=== PATIENT | male | born 1935 | race Caucasian/White ===

== ENCOUNTER 2020-12-16 08:52 | Observation (INO) | payer MEDICARE, OTHER ==
[2020-12-16 09:37] LABS: #Eosinphils 0.1 thou/uL (0.0-0.7); #Lymphocytes 2.1 thou/uL (1.20-3.40); #Monocytes 0.4 thou/uL (0.11-0.59); #Neutrophils 11.9 thou/uL (1.40-6.50); %Basophils 0.1 % (0.0-1.0); %Lymphocytes 14.5 % (21.0-51.0); %Monocytes 2.4 % (0.0-10.0); Hemoglobin 12.7 g/dL (14.0-18.0); Mean Corpuscular HGB CONC 32.6 g/dL (32.0-36.0); Mean Corpuscular Hemoglobin 33.3 pg (27.0-31.0); Mean Platelet Volume 9.6 fL (7.4-10.4); Platelet Count 167 thou/uL (130-400); RBC Distribution Width 16.1 % (11.5-14.5); White Blood Cell (WBC) Count 14.5 thou/uL (4.8-10.8)
--- NOTE | 2020-12-16 09:44 | RAD ---
Exam: Chest one view HISTORY:Status post fall. Pain. Comparison: None FINDINGS: Cardiac silhouette:Cardiomegaly. Left-sided transvenous defibrillator with lead positioned over the c oronary sinus, right ventricle. There are sternotomy wires. Aorta: Atherosclerotic Pulmonary vessels: Normal Costophrenic angles: Clear LUNGS: Presumed chronic changes of the lung parenchyma without consolidation or mass. Pneumothorax: None Osseous abnormalities: None IMPRESSION: 1. Atherosclerosis 2. Cardiomegaly without evidence of congestive heart failure.
[2020-12-16 09:52] LABS: ALT (SGPT) 11 U/L (8-55); AST (SGOT) 22 U/L (5-34); Albumin 3.9 g/dL (3.4-4.8); Alkaline Phosphatase 62 U/L (40-110); Anion Gap 16 mmol/L (10-20); BUN (Urea Nitrogen) 25 mg/dL (8.4-25.7); Bilirubin, Total 1.2 mg/dL (0.2-1.2); Calc. Creatinine Clearance 0 mL/min (70-130); Calcium 8.9 mg/dL (7.8-10.44); Carbon Dioxide 22 mmol/L (23-31); Chloride 105 mmol/L (98-107); Globulin 3.5 g/dL (2.4-3.5); Glucose 198 mg/dL (83-110); Potassium 4.5 mmol/L (3.5-5.1); Protein, Total 7.4 g/dL (5.8-8.1); Sodium 138 mmol/L (136-145)
--- NOTE | 2020-12-16 10:01 | CT ---
Exam: Head CT without contrast HISTORY: Fall. Trauma. Pain. COMPARISON: none FINDINGS: Hemorrhage: No intraparenchymal hemorrhage or extra-axial hematoma. Brain parenchyma: Cortical khan-white matter differentiation is preserved. No mass effect or midline shift. Basilar cisterns are patent.There are chronic small vessel ischemic changes of the white matter Ventricular system: Ventricles and sulci are patent and symmetric. Calvarium: Intact. Sinuses and mastoid air cells: Adequate aeration. IMPRESSION: No intracranial posttraumatic sequelae.
[2020-12-16 10:09] LABS: INR-International Normal Ratio 2.6; Prothrombin Time 28.6 sec (12.0-14.7)
[2020-12-16 10:10] LABS: PTT 44.7 sec (22.9-36.1)
[2020-12-16 10:12] LABS: CKMB 0.9 ng/mL (0-6.6)
--- NOTE | 2020-12-16 11:12 | CT ---
CT LUMBAR SPINE WITHOUT IV CONTRAST: HISTORY: Injury and pain following a fall. FINDINGS: Diffuse bony demineralization. Minimally comminuted, less than 50% vertical height loss fracture of t he L2 vertebral body without significant retropulsion. No associated posterior element involvement. V hermes mild vertical height loss of T11, which may also represent a very mild superior endplate compress ion fracture. There is possibly very mild superior retropulsion. No evidence for associated stenosis. No posterior element involvement. Minimal grade 1 spondylolisthesis of L5 on S1 with bilateral pars defects. Mild canal stenosis at L3-L4 from disk bulging and ligament and facet hypertrophic changes. IMPRESSION: 1. Comminuted, less than 50% vertical height fracture of L2 without significant retropulsion or poste rior element involvement. 2. Mild anterior-superior compression fracture of T11 with possible very mild superior retropulsion. 3. Grade 1 anterolisthesis of L5 on S1 secondary to bilateral pars defects. 4. Significant diffuse bony demineralization. POS: RRE
[2020-12-16 15:20] LABS: CKMB 1.2 ng/mL (0-6.6)
--- NOTE | 2020-12-16 15:26 | PDOC.FPRHP ---
- History of Present Illness Chief Complaint: fell on ice History of Present Illness: Mr. Wolff is an 85 yo gentleman with a history of CABG 2/2 CAD, past OR, and ICD secondary to ventricular fibrillation who had a nonsyncopal fall this morning when he slipped on ice walking to get his newspaper and fell on his bottom. He reports pain in his lower back. He denies urinary incontinence, lower extremity weakness, numbness, or tingling. Patient was found to have troponin levels of 0.035, 0.042, 0.056 in the ED. He denies headache, diaphoresis, CP, or SOB. ED Course: Neurosurgery contacted and recommended, TINO arguello - Allergies/Adverse Reactions Allergies Allergy/AdvReac Type Severity Reaction Status Date / Time Penicillins Allergy Verified 12/16/20 16:20 - Home Medications Comments: furosemide, sotalol, coumadin, losartan, glipizide, metoprolol, zocor - History PMHx: bladder cancer, OR, CAD, DMII, HTN, HLD PSHx: CABG, colostomy, ICD FHx: Dad-passed from [place] Social: Denies tobacco, alcohol, or drug use - Review of Systems General: denies: fever/chills Eyes: denies: vision changes Respiratory: denies: cough, congestion, shortness of breath Cardiovascular: denies: chest pain, palpitation Gastrointestinal: denies: nausea, vomiting Genitourinary: denies: incontinence Skin: denies: rashes Musculoskeletal: reports: pain, tenderness Neurological: denies: numbness, weakness - Vital signs BP: 151/85 HR: 61 RR: 18 Tmax: 98.1 Pox: 92% on RA Wt: 100kg - Physical Exam Constitutional: NAD HEENT: grossly normal vision, grossly normal hearing Neck: FROM -Heart: paced rhythm Lungs: CTAB Abdomen: soft, non-tender -Abdomen: colostomy on right side of abdomen Musculoskeletal: ROM grossly normal -Musculoskeletal: tenderness to palpation over lumbar spine, normal sensation and strength of LE bilaterally Neurological: no focal deficit, normal sensation Skin: no rash/lesions Heme/Lymphatic: no unusual bruising or bleeding Psychiatric: normal mood and affect, good judgment and insight, intact recent and remote memory FMR H&P: Results - Labs Result Diagrams: 12/16/20 09:19 12/16/20 09:20 Lab results: WBC 14.5 thou/uL (4.8-10.8) H 12/16/20 09:19 Hgb 12.7 g/dL (14.0-18.0) L 12/16/20 09:19 Hct 38.9 % (42.0-52.0) L 12/16/20 09:19 MCV 102.0 fL (78.0-98.0) H 12/16/20 09:19 Plt Count 167 thou/uL (130-400) 12/16/20 09:19 Neutrophils % 82.0 % (42.0-75.0) H 12/16/20 09:19 Sodium 138 mmol/L (136-145) 12/16/20 09:20 Potassium 4.5 mmol/L (3.5-5.1) 12/16/20 09:20 Chloride 105 mmol/L (98-107) 12/16/20 09:20 Carbon Dioxide 22 mmol/L (23-31) L 12/16/20 09:20 BUN 25 mg/dL (8.4-25.7) 12/16/20 09:20 Creatinine 1.67 mg/dL (0.7-1.3) H 12/16/20 09:20 Glucose 198 mg/dL (83-110) H 12/16/20 09:20 Calcium 8.9 mg/dL (7.8-10.44) 12/16/20 09:20 Total Bilirubin 1.2 mg/dL (0.2-1.2) 12/16/20 09:20 AST 22 U/L (5-34) 12/16/20 09:20 ALT 11 U/L (8-55) 12/16/20 09:20 Alkaline Phosphatase 62 U/L (40-110) 12/16/20 09:20 Creatine Kinase 50 U/L (30-200) 12/16/20 09:16 CK-MB (CK-2) 1.2 ng/mL (0-6.6) 12/16/20 14:25 Serum Total Protein 7.4 g/dL (5.8-8.1) 12/16/20 09:20 Albumin 3.9 g/dL (3.4-4.8) 12/16/20 09:20 - EKG Interpretation EKG: paced rhythm - Radiology Interpretation CT scan - head Status: report reviewed by me (negative) Other Status: report reviewed by me (CT lumbar spine: vertical height fracture L2, compression fracture T11) FMR H&P: A/P - Plan 85 yo M presenting after nonsyncopal fall with indeterminate troponinsx3. Indeterminate troponins - trop 0.035, 0.042, 0.056 - Extensive cardiac history including OR, CABG 2/2 CAD, ICD 2/2 ventricular fibrillation - Admit to tele for observation - trend troponins Vertical height fracture L2, compression fracture T11 - CT lumbar spine revealed above - Neurosurgery consulted, recommended TLSO brace - Tylenol 1g q6hr, PRN 600mg ibuprofen MELVIN vs CKD - Cr 1.67, do not know baseline - LR 500mL bolus ordered - Recheck in AM HLD - Continue home meds HTN - Continue home meds DM2 - Continue home meds ICD 2/2 ventricular fibrillation - Continue coumadin DVT PPx: home coumadin Diet: PCP: CC Dispo: likely discharge home tomorrow pending troponins FMR H&P: Upper Level - Plan Date/Time: 12/16/20 1526 Boni Bonilla [email or web address], have evaluated this patient and agree with findings/plan as outlined by analytics intern resident. Pertinent changes/additions are listed here. 85-year-old gentleman presents to the ER after falling on his sidewalk. He has cardiac history of CAD and has an AICD placed. He reports that his fall was mechanical 1 as he slipped on the ice. In the emergency room he was evaluated by neurosurgery and had recommendations for outpatient follow-up after being given a TLSO brace. However his troponins have increased since being in the emergency room. On exam he is in no distress, heart has regular rate and rhythm with no murmur, lungs are clear to auscultation bilaterally, lower extremities have no edema. Assessment and plan Elevated troponin Patient is stable, EKG is not concerning, troponins are indeterminate and increasing x3. Etiology of elevation is unknown but patient is asymptomatic other than his back pain from the compression fracture. Will trend overnight and likely DC tomorrow Compression fracture Per neuro surgery recommendation will give patient TLSO brace and plan for follow-up outpatient. All other chronic problems per analytics intern note CODE: FULL dispo: obs, less than 2 midnights expected
[2020-12-16] MEDS ORDERED: Ondansetron ODT 4 MG TAB PO PRN (15:46)
[2020-12-16] MEDS ORDERED: Ibuprofen 600 MG TAB PO PRN (15:46)
[2020-12-16] MEDS ORDERED: Ondansetron PF 4 MG/2 ML Vial IVP PRN (15:46)
[2020-12-16] MEDS ORDERED: Lactated Ringer's 500 ML IV SCH (16:00)
[2020-12-16 17:32] VITALS: BMI 29.2
[2020-12-16] MEDS: Acetaminophen 500 MG TAB PO SCH ×2 (18:00→20:46)
[2020-12-16 19:37] LABS: Troponin I 0.042 ng/mL (< 0.028)
[2020-12-16] MEDS ORDERED: glipiZIDE 5 MG TAB PO SCH (21:00)
[2020-12-16] MEDS ORDERED: Warfarin Sodium 2 MG TAB PO SCH (21:00)
[2020-12-16] MEDS ORDERED: Atorvastatin Calcium 10 MG TAB PO SCH (21:00)
[2020-12-16 22:41] LABS: Troponin I 0.046 ng/mL (< 0.028)
[2020-12-17 01:19] LABS: SARS-CoV-2 PCR by NAA Not Detected (NotDetected)
[2020-12-17] MEDS ORDERED: Sotalol HCl 80 MG TAB ONE (08:07)
[2020-12-17] MEDS ORDERED: Furosemide 20 MG TAB ONE (08:08)
[2020-12-17] MEDS ORDERED: Acetaminophen 500 MG TAB ONE (08:08)
[2020-12-17] MEDS ORDERED: Furosemide 20 MG TAB PO SCH (09:00)
[2020-12-17] MEDS ORDERED: Losartan 25 MG TAB PO SCH (09:00)
[2020-12-17] MEDS ORDERED: Sotalol HCl 80 MG TAB PO SCH (09:00)
--- NOTE | 2020-12-17 12:13 | HP ---
Please see the history and physical from Dr. Haile Meade, for which I agree. Patient was seen, evaluated, and discussed with the residents at bedside. HISTORY OF PRESENT ILLNESS: This is an 85-year-old fairly new to the area, but does have history of coronary artery disease and he is on chronic Coumadin, who basically slipped on the ice this morning, landed on his back, has a T12 vertebral fracture, maybe it was T11, but nonetheless severe pain, but in the hospital ER, they did serial cardiac enzymes that were trending upward and he does have history of heart disease. Denies chest pain or shortness of breath. He is basically admitted for pain control, possibly rehab and to further evaluate his cardiac status. PAST MEDICAL HISTORY: All per Dr. Meade's history and physical. HOME MEDICATIONS: All per Dr. Meade's history and physical. PAST SURGICAL HISTORY: All per Dr. Meade's history and physical. FAMILY HISTORY: All per Dr. Meade's history and physical. REVIEW OF SYSTEMS: All per Dr. Meade's history and physical. PHYSICAL EXAMINATION: VITAL SIGNS: Currently afebrile. Vital signs stable. GENERAL: Alert and oriented x3. Pleasant. ENT: Conjunctivae not pale. Sclerae anicteric. Moist mucosa. CHEST: Clear. HEART: Regular rate and rhythm without any murmurs, rubs, gallops or ectopy. ABDOMEN: Benign. EXTREMITIES: There is a trace edema. Did not do much of a back exam as he is in a lot of pain. NEUROLOGICAL: Lower extremities normal. IMAGING STUDIES: Lumbar CT showed actually an L2 fracture, fairly comminuted and then a milder one at T11. ASSESSMENT AND PLAN: 1. L2 vertebral fracture from a fall. 2. Coronary artery disease with elevated troponin. PLAN: To admit for pain control. Sounds like Neurosurgery was consulted and they recommended just a brace for now. We will make sure we get pain control. We will trend cardiac enzymes, put him on telemetry. Otherwise, continue home medication and he is in quite a bit of pain. I anticipate he is probably going to end up having to go to rehab type setting just to get him back to his baseline for activities of daily living. Job ID: [id number]
[2020-12-17] MEDS: Acetaminophen 500 MG TAB PO SCH (14:38)
[2020-12-17 15:36] VITALS: TEMP 97.8
[2020-12-17 15:43] VITALS: BP 142/67
[2020-12-17 16:28] LABS: Anion Gap 15 mmol/L (10-20); BUN (Urea Nitrogen) 28 mg/dL (8.4-25.7); Calc. Creatinine Clearance 50 mL/min (70-130); Calcium 8.6 mg/dL (7.8-10.44); Carbon Dioxide 23 mmol/L (23-31); Chloride 102 mmol/L (98-107); Glucose 103 mg/dL (83-110); Potassium 4.2 mmol/L (3.5-5.1); Sodium 136 mmol/L (136-145)
[2020-12-17] MEDS ORDERED: Warfarin Sodium 2 MG TAB PO SCH (21:00)
[2020-12-18] MEDS ORDERED: Warfarin Sodium 2 MG TAB PO SCH (21:00)
--- NOTE | 2020-12-19 13:45 | PDOC.BPN ---
- Brief Progress Note Encounter Date: 12/17/20 Encounter Time: 08:00 Please see paper chart for today's progress note. In summary, patient's troponins had stable trend. He was fitted with a TLSO brace. Stable for discharge back to home with outpatient neurosurgery follow up.
--- NOTE | 2020-12-19 15:32 | DIS ---
DATE OF ADMISSION: 12/16/2020 DATE OF DISCHARGE: 12/17/2020 RESIDENT: Mervat Desai DO. ADMITTING ATTENDING: Deny Felix MD. DISCHARGE ATTENDING: Deny Felix MD CONSULTS: 1. Neurosurgery. 2. Physical Therapy. PROCEDURES: 1. Chest x-ray on December 16, 2020: Atherosclerosis. Cardiomegaly without evidence of congestive heart failure. 2. Brain CT on December 16, 2020: No acute pathology. 3. Lumbar spine CT on December 16, 2020: Comminuted, less than 50% vertebral height fracture of L2 without significant retropulsion or posterior element involvement. Mild anterior superior compression fracture of T11 with possible very mild superior retropulsion. Grade 1 anterolisthesis of L5 on S1 secondary to bilateral pars defects. Significant diffuse bony demineralization. PRIMARY DIAGNOSES: 1. Compression fracture of T11. 2. Vertebral height fracture of L2. 3. Indeterminate troponins, stable. SECONDARY DIAGNOSES: 1. Chronic kidney disease. 2. Hyperlipidemia. 3. Hypertension. 4. Type 2 diabetes mellitus. 5. History of AICD placement, secondary to ventricular fibrillation. DISCHARGE MEDICATIONS: 1. Simvastatin 20 mg p.o. at bedtime. 2. Losartan 25 mg p.o. daily. 3. Furosemide 20 mg p.o. daily. 4. Sotalol 120 mg p.o. daily. 5. Glipizide 5 mg p.o. at bedtime. 6. Metoprolol succinate 25 mg p.o. at bedtime. 7. Coumadin 2 mg tablets, resume home dosing instructions. 8. Acetaminophen 1000 mg p.o. q.6 hours p.r.n. for pain. DISCONTINUED MEDICATIONS: None. HISTORY OF PRESENT ILLNESS/HOSPITAL COURSE: The patient is an 85-year-old male with a history of CABG secondary to coronary artery disease, history of multiple past OH, and AICD placement secondary to ventricular fibrillation, who had a fall on the morning of December 16, 2020, after slipping on ice. He fell onto his bottom and felt sharp extreme pain in his lower back. The patient was evaluated in the emergency department and found to have a compression fracture of T11 and vertebral height fracture of L2. Neurosurgery was contacted from the emergency department and they recommended placement of a TLSO brace to be worn at all times unless the patient is showering. The patient was also found to have troponin levels of 0.046, which were trended and ultimately remained stable with most recent troponin of 0.035. The patient had a TLSO brace delivered on December 17, 2020, and this was fitted with the help of Physical Therapy. The patient's pain was well controlled with the TLSO brace and Tylenol. The patient was discharged home in stable condition on the afternoon of December 17, 2020. He will need outpatient followup with Neurosurgery. DISPOSITION: Stable. DISCHARGE INSTRUCTIONS: 1. Location: Home. 2. Diet: Regular, heart healthy. 3. Activity: As tolerated. Wear TLSO brace at all times unless bathing or showering. 4. Follow up with PCP at [facility] in 5 to 7 days. 5. Follow up with Neurosurgery as previously directed. Job ID: [id number]
== END 2020-12-17 15:55 | disposition home or self-care (01) ==
LOC: ERS 08:52 → 2NO 15:30
PROVIDERS: ADMIT Family Medicine; ATTEND Family Medicine
DX: S22.080A Wedge compression fracture of T11-T12 vertebra, initial encounter for closed fracture (principal); S32.028A Other fracture of second lumbar vertebra, initial encounter for closed fracture; R77.8 Other specified abnormalities of plasma proteins; I12.9 Hypertensive chronic kidney disease with stage 1 through stage 4 chronic kidney disease, or unspecified chronic kidney disease; E11.22 Type 2 diabetes mellitus with diabetic chronic kidney disease; N18.9 Chronic kidney disease, unspecified; E78.5 Hyperlipidemia, unspecified; I49.01 Ventricular fibrillation; I25.10 Atherosclerotic heart disease of native coronary artery without angina pectoris; I25.2 Old myocardial infarction; M43.17 Spondylolisthesis, lumbosacral region; Z79.01 Long term (current) use of anticoagulants; Z79.84 Long term (current) use of oral hypoglycemic drugs; Z79.899 Other long term (current) drug therapy; Z88.0 Allergy status to penicillin; Z95.1 Presence of aortocoronary bypass graft; Z95.810 Presence of automatic (implantable) cardiac defibrillator; Z20.822 Contact with and (suspected) exposure to COVID-19; W00.0XXA Fall on same level due to ice and snow, initial encounter
CPT/HCPCS: 70450; 71045; 72131; 80048; 80053; 82550; 82553; 82962 ×2; 84484 ×2; 85025; 85610; 85730; 93005; 97116; 97139 ×2; 99285; U0003; U0005; 36415; 36416; 87635; G0378

== ENCOUNTER 2020-12-27 11:32 | Outpatient (CLI) | payer MEDICARE, OTHER ==
--- NOTE | 2020-12-27 13:58 | RAD ---
Lumbar spine 2 views: 12/27/2020 COMPARISON: Lumbar spine CT 12/16/2020 HISTORY: Lumbar spine fracture, patient is imaged in a brace FINDINGS: Lateral pelvic postoperative clips. Bilateral L5 pars defects are present with anterolisthesis at L5-S1 measuring approximately 1 cm. There is diffuse atherosclerotic calcification of the abdominal aorta. There is mild retrolisthesis measuring 5 mm at L3-4. There is a fracture involving the superior endplate of the L2 vertebral body with approximately 50% l oss of vertebral body height centrally, not significantly changed when compared to the 12/16/[address] No new fracture identified. In addition, there is a fracture of the T11 vertebral amber dy with mild anterior loss of vertebral body height, not significantly changed. IMPRESSION: L2 and T11 fractures, not significantly changed when compared to recent CT examination. A dditional incidental findings as detailed above.
--- NOTE | 2020-12-27 13:59 | RAD ---
Frontal, lateral, and swimmer's lateral imaging of the thoracic spine: 12/27/2020 HISTORY: Reevaluate fracture deformities noted on recent lumbar spine CT FINDINGS: Midline sternotomy wires and multilead transvenous AICD present. The patient's T11 fracture is not well visualized on this examination but is well seen and stable on the lumbar spine radiograph performed 12/27/2020. Partially imaged cervical spine demonstrates multilevel disc space narrowing, degenerative endplate change, and anterior osteophyte formation, mos t prominent at C4-5 and C5-6 IMPRESSION: Limited thoracic spine imaging as detailed above.
== END 2020-12-27 11:33 | disposition home or self-care (01) ==
LOC: RAD 11:32
PROVIDERS: ATTEND Physician Assistant
DX: S22.008A Other fracture of unspecified thoracic vertebra, initial encounter for closed fracture (principal); M48.56XA Collapsed vertebra, not elsewhere classified, lumbar region, initial encounter for fracture
CPT/HCPCS: 72072; 72100

== ENCOUNTER 2021-02-07 16:50 | Outpatient (CLI) | payer MEDICARE, OTHER | END 2021-02-07 16:51 | disposition home or self-care (01) | LOC: RAD 16:50 | PROVIDERS: ATTEND Neurological Surgery | DX: S22.008A Other fracture of unspecified thoracic vertebra, initial encounter for closed fracture (principal); M48.56XA Collapsed vertebra, not elsewhere classified, lumbar region, initial encounter for fracture | CPT/HCPCS: 72070; 72100 ==

== ENCOUNTER 2021-03-12 16:45 | Outpatient (CLI) | payer MEDICARE, OTHER | END 2021-03-12 16:46 | disposition home or self-care (01) | LOC: TBSIIMAG 16:45 | PROVIDERS: ATTEND Neurological Surgery | DX: S32.021D Stable burst fracture of second lumbar vertebra, subsequent encounter for fracture with routine healing (principal) | CPT/HCPCS: 72100 ==

== ENCOUNTER 2021-04-23 10:50 | Outpatient (CLI) | payer MEDICARE, OTHER | END 2021-04-23 10:51 | disposition home or self-care (01) | LOC: RAD 10:50 | PROVIDERS: ATTEND Neurological Surgery | DX: S32.021D Stable burst fracture of second lumbar vertebra, subsequent encounter for fracture with routine healing (principal); S22.089A Unspecified fracture of T11-T12 vertebra, initial encounter for closed fracture; M47.816 Spondylosis without myelopathy or radiculopathy, lumbar region | CPT/HCPCS: 72100 ==

== ENCOUNTER 2022-05-12 22:07 | Observation (INO) | payer MEDICARE, OTHER ==
[2022-05-13 02:13] VITALS: BMI 32.6
[2022-05-13] MEDS ORDERED: Sodium Chloride 0.9% 1,000 ML IV SCH ×2 (02:45→03:43)
[2022-05-13] MEDS ORDERED: Senokot S 8.6-50 MG TAB PO PRN (03:38)
[2022-05-13] MEDS ORDERED: Acetaminophen 325 MG TAB PO PRN (03:38)
[2022-05-13] MEDS ORDERED: Melatonin 3 MG TAB PO PRN (03:42)
[2022-05-13] MEDS ORDERED: Losartan 25 MG TAB PO SCH (09:00)
[2022-05-13 09:02] LABS: Hemoglobin A1c 6.2 % (4.0-6.0)
[2022-05-13 09:10] LABS: #Eosinphils 0.2 thou/uL (0.0-0.7); #Lymphocytes 2.1 thou/uL (1.20-3.40); #Monocytes 0.4 thou/uL (0.11-0.59); #Neutrophils 3.1 thou/uL (1.40-6.50); %Basophils 0.8 % (0.0-1.0); %Eosinophils 4.2 % (0.0-10.0); %Lymphocytes 35.9 % (21.0-51.0); %Neutrophils 53.1 % (42.0-75.0); Hemoglobin 11.4 g/dL (14.0-18.0); Mean Corpuscular HGB CONC 31.2 g/dL (32.0-36.0); Mean Corpuscular Hemoglobin 32.6 pg (27.0-31.0); Mean Platelet Volume 10.6 fL (7.4-10.4); Platelet Count 183 thou/uL (130-400); Red Blood Cell (RBC) Count 3.51 mill/uL (4.70-6.10); White Blood Cell (WBC) Count 5.7 thou/uL (4.8-10.8)
[2022-05-13 09:19] LABS: ALT (SGPT) 7 U/L (8-55); AST (SGOT) 17 U/L (5-34); Albumin 3.7 g/dL (3.4-4.8); Alkaline Phosphatase 64 U/L (40-110); Anion Gap 13 mmol/L (10-20); BUN (Urea Nitrogen) 29 mg/dL (8.4-25.7); Bilirubin, Total 0.6 mg/dL (0.2-1.2); Calc. Creatinine Clearance 41 mL/min (70-130); Calcium 8.8 mg/dL (7.8-10.44); Carbon Dioxide 25 mmol/L (23-31); Chloride 105 mmol/L (98-107); Estimated GFR 36; Globulin 4.1 g/dL (2.4-3.5); Glucose 136 mg/dL (83-110); Potassium 4.5 mmol/L (3.5-5.1); Protein, Total 7.8 g/dL (5.8-8.1); Sodium 138 mmol/L (136-145)
[2022-05-13] MEDS: Sotalol HCl 80 MG TAB PO SCH ×2 (09:39→10:59)
[2022-05-13 10:33] LABS: INR-International Normal Ratio 3.1; Prothrombin Time 32.5 sec (12.0-14.7)
[2022-05-13] MEDS ORDERED: Cephalexin 250 MG CAP PO SCH ×2 (14:45→21:00)
[2022-05-13] MEDS ORDERED: Warfarin Sodium 2 MG TAB PO SCH (17:00)
[2022-05-13 18:40] VITALS: BP 95/63; TEMP 97.2
[2022-05-13] MEDS ORDERED: Cholecalciferol 1,000 UNITS (25 MCG) TAB PO SCH (21:00)
[2022-05-13] MEDS ORDERED: cefTRIAXone\\ROCEPHIN 1 GM in Sodium Chloride 0.9% 100 ML IVPB SCH (21:00)
[2022-05-13] MEDS ORDERED: Atorvastatin Calcium 10 MG TAB PO SCH (21:00)
[2022-05-13] MEDS ORDERED: Folic Acid 1 MG TAB PO SCH (21:00)
== END 2022-05-13 17:34 | disposition home or self-care (01) ==
LOC: T4-A 22:07
PROVIDERS: ADMIT Internal Medicine; ATTEND Internal Medicine
DX: N99.521 Infection of incontinent external stoma of urinary tract (principal); I12.9 Hypertensive chronic kidney disease with stage 1 through stage 4 chronic kidney disease, or unspecified chronic kidney disease; E11.22 Type 2 diabetes mellitus with diabetic chronic kidney disease; N18.30 Chronic kidney disease, stage 3 unspecified; N17.9 Acute kidney failure, unspecified; D63.1 Anemia in chronic kidney disease; F03.90 Unspecified dementia, unspecified severity, without behavioral disturbance, psychotic disturbance, mood disturbance, and anxiety; E11.649 Type 2 diabetes mellitus with hypoglycemia without coma; I25.2 Old myocardial infarction; I25.10 Atherosclerotic heart disease of native coronary artery without angina pectoris; Z85.51 Personal history of malignant neoplasm of bladder; Z87.891 Personal history of nicotine dependence; Z79.01 Long term (current) use of anticoagulants; Z79.84 Long term (current) use of oral hypoglycemic drugs; Z79.899 Other long term (current) drug therapy; Z88.0 Allergy status to penicillin; Z95.1 Presence of aortocoronary bypass graft; Z95.810 Presence of automatic (implantable) cardiac defibrillator; Z90.6 Acquired absence of other parts of urinary tract; Z20.822 Contact with and (suspected) exposure to COVID-19
CPT/HCPCS: 80053 ×2; 82962; 83036; 83690; 85025 ×2; 85610; 87040 ×2; 87086 ×2; 97139; U0003; U0005; 36415; 36416; 81003; 81015; G0378; J0696; J7050

== ENCOUNTER 2022-05-22 09:39 | Outpatient (CLI) | payer MEDICARE, OTHER | END 2022-05-22 09:40 | disposition home or self-care (01) | LOC: ULT 09:39 | PROVIDERS: ATTEND Internal Medicine Nephrology | DX: N18.30 Chronic kidney disease, stage 3 unspecified (principal); N26.1 Atrophy of kidney (terminal) | CPT/HCPCS: 36415; 76770; 80048; 81001; 82040; 82306; 82570; 83735; 83970; 84100; 84156; 85025; 93975 ==

== ENCOUNTER 2022-06-13 15:17 | Outpatient (CLI) | payer MEDICARE, OTHER | END 2022-06-13 15:18 | disposition home or self-care (01) | LOC: BICMAMMO 15:17 | PROVIDERS: ATTEND Urology | DX: M85.89 Other specified disorders of bone density and structure, multiple sites (principal) | CPT/HCPCS: 77080 ==